=== PATIENT | female | born 1985 | race Caucasian/White ===

== ENCOUNTER 2017-07-10 21:17 | Emergency (ER) | payer MEDICAID ==
[~2017-07-10] VITALS: Ht 170.2 cm; Wt 83.9 kg
[2017-07-10 21:51] VITALS: BP_SYST 141
--- NOTE | 2017-07-10 22:00 | NUR ---
PT IN WAITING ROOM TO [facility] C/O VAGINAL BLEED IUP 5 W[address]KS , DR JIMENEZ AWARE.
--- NOTE | 2017-07-10 22:05 | NUR ---
ER examining patient in triage.
[2017-07-10 22:54] LABS: BILIRUBIN,URINE NEGATIVE (NEGATIVE); BLOOD, URINE NEGATIVE (NEGATIVE); CLARITY/URINE CLEAR (CLEAR); COLOR,URINE YELLOW (YELLOW); GLUCOSE,URINE NEGATIVE (NEGATIVE); KETONES,URINE NEGATIVE (NEGATIVE); LEUKOCYTE ESTERASE ,URINE NEGATIVE (NEGATIVE); NITRITE, URINE NEGATIVE (NEGATIVE); PH,URINE 6.5 (5.0-8.0); PROTEIN URINE NEGATIVE (NEGATIVE)
[2017-07-10 23:22] LABS: BASOPHILS % (AUTO) 0.6 % (0.0-2.0); EOSINOPHILS # (AUTO) 0.2 K/uL (0.0-0.4); EOSINOPHILS % (AUTO) 2.6 % (0.0-4.0); HEMOGLOBIN 14.1 g/dL (12.0-16.0); LYMPHOCYTES # (AUTO) 2.8 K/uL (1.0-5.5); MEAN CORPUSCULAR HEMOGLOBIN 33 pg (27-31); MEAN CORPUSCULAR HGB CONC 34 % (32-36); MEAN CORPUSCULAR VOLUME 94 fL (79.0-98.0); MONOCYTES # (AUTO) 0.7 K/uL (0.0-1.0); MONOCYTES % (AUTO) 9.8 % (1.7-9.3); NEUTROPHILS # (AUTO) 3.6 K/uL (1.8-7.7); PLATELET COUNT (AUTO) 250 K/uL (130-430); RED BLOOD CELL COUNT(AUTO) 4.34 MIL/uL (4.2-6.2); RED CELL DISTRIBUTION WIDTH 11.9 % (9.0-15.0); WHITE BLOOD COUNT (AUTO) 7.3 K/uL (4.8-10.8)
--- NOTE | 2017-07-10 23:30 | NUR ---
pt in hallway stable no complaints.
[2017-07-10 23:46] LABS: CALCIUM 8.6 mg/dL (8.4-11.0); CREATININE 0.77 mg/dL (0.55-1.30); POTASSIUM 3.6 mmol/L (3.5-5.1)
[2017-07-10 23:51] LABS: ALBUMIN 3.7 g/dL (3.4-4.8); TOTAL BILIRUBIN 0.3 mg/dL (0.0-1.0)
[2017-07-11 01:21] VITALS: BP_SYST 132
--- NOTE | 2017-07-11 01:27 | NUR ---
Patient given written and verbal discharge instructions and verbalizes understanding. ER MD discussed with patient the results and treatment provided. Patient in stable condition. ID arm band removed. no RX given. Patient educated on pain management and to follow up with PMD. Pain Scale 0/10. Opportunity for questions provided and answered.
== END 2017-07-11 01:21 | disposition home or self-care (01) ==
LOC: SED 21:17
DX: O20.0 Threatened abortion (principal); Z3A.01 Less than 8 weeks gestation of pregnancy
CPT/HCPCS: 36415; 76801; 76817; 80053; 81003; 81025; 84702-TC; 85025; 86900; 86901; 99285

== ENCOUNTER 2017-07-11 23:56 | Emergency (ER) | payer MEDICAID ==
[~2017-07-11] VITALS: Ht 170.2 cm; Wt 83.9 kg
[2017-07-12 00:11] VITALS: BP_SYST 141
--- NOTE | 2017-07-12 00:42 | NUR ---
Patient to ER bed 8 to gown for evaluation. Side rails up. Report given to DILMA Bob
--- NOTE | 2017-07-12 00:42 | NUR ---
SAVANNAH HERNANDEZ Kwaw at bedside for medical evaluation.
--- NOTE | 2017-07-12 00:45 | NUR ---
Patient AOx4, ambulatory, presents to ER with complaint of vaginal bleeing x3 days and passing large blood clots. Patient states she is 5 weeks . Patient states no pain. No other symptoms or complaints at this time.
[2017-07-12 01:13] LABS: CALCIUM 8.9 mg/dL (8.4-11.0); CREATININE 0.64 mg/dL (0.55-1.30); POTASSIUM 3.5 mmol/L (3.5-5.1)
[2017-07-12 01:19] LABS: BASOPHILS # (AUTO) 0.1 K/uL (0.0-0.2); BASOPHILS % (AUTO) 0.7 % (0.0-2.0); EOSINOPHILS # (AUTO) 0.1 K/uL (0.0-0.4); EOSINOPHILS % (AUTO) 1.6 % (0.0-4.0); LYMPHOCYTES # (AUTO) 2.3 K/uL (1.0-5.5); LYMPHOCYTES % (AUTO) 30.3 % (20.5-51.5); MEAN CORPUSCULAR HEMOGLOBIN 33 pg (27-31); MEAN CORPUSCULAR HGB CONC 34 % (32-36); MEAN CORPUSCULAR VOLUME 95 fL (79.0-98.0); MONOCYTES # (AUTO) 0.7 K/uL (0.0-1.0); MONOCYTES % (AUTO) 8.7 % (1.7-9.3); NEUTROPHILS # (AUTO) 4.5 K/uL (1.8-7.7); NEUTROPHILS % (AUTO) 58.7 % (40.0-70.0); PLATELET COUNT (AUTO) 255 K/uL (130-430); RED BLOOD CELL COUNT(AUTO) 4.61 MIL/uL (4.2-6.2); RED CELL DISTRIBUTION WIDTH 12.2 % (9.0-15.0); TOTAL BILIRUBIN 0.4 mg/dL (0.0-1.0); WHITE BLOOD COUNT (AUTO) 7.7 K/uL (4.8-10.8)
--- NOTE | 2017-07-12 01:40 | NUR ---
Patient resting, states no pain at this time.
[2017-07-12 02:23] VITALS: BP_SYST 135
--- NOTE | 2017-07-12 02:23 | NUR ---
Patient given written and verbal discharge instructions and verbalizes understanding. ER MD discussed with patient the results and treatment provided. Patient in stable condition. ID arm band removed. Patient educated on pain management and to follow up with PMD. Pain Scale 0/10. Opportunity for questions provided and answered.
== END 2017-07-12 02:23 | disposition home or self-care (01) ==
LOC: SED 23:56
DX: O20.0 Threatened abortion (principal); Z3A.01 Less than 8 weeks gestation of pregnancy
CPT/HCPCS: 36415; 76801; 76817; 80053; 84702-TC; 85025; 99285

== ENCOUNTER 2018-01-31 20:50 | Emergency (ER) | payer MEDICAID ==
[~2018-01-31] VITALS: Ht 170.2 cm; Wt 78.0 kg
[2018-01-31 21:00] VITALS: BP_SYST 164
[2018-01-31] MEDS ORDERED: NACL 0.9% 1,000 ML IV ONE (21:24)
[2018-01-31] MEDS ORDERED: ACETAMINOPHEN 325 MG TABLET PO ONE (21:30)
[2018-01-31 21:45] LABS: HEMATOCRIT 38.7 % (36-48); HEMOGLOBIN 13.1 g/dL (12.0-16.0); MEAN CORPUSCULAR HEMOGLOBIN 32 pg (27-31); MEAN CORPUSCULAR HGB CONC 34 % (32-36); MEAN CORPUSCULAR VOLUME 96 fL (79.0-98.0); PLATELET COUNT (AUTO) 202 K/uL (130-430); RED BLOOD CELL COUNT(AUTO) 4.04 MIL/uL (4.2-6.2); RED CELL DISTRIBUTION WIDTH 11.7 % (9.0-15.0); WHITE BLOOD COUNT (AUTO) 4.5 K/uL (4.8-10.8)
[2018-01-31 22:20] LABS: ATYPICAL LYMPHOCYTES % 0 % (0-0); BAND % (MANUAL) 2 % (0-6); LYMPHOCYTES % (MANUAL) 55 % (20-46); MONOCYTES % (MANUAL) 6 % (0-11)
[2018-01-31 22:21] LABS: BASOPHILS % (MANUAL) 0 % (0-2); EOSINOPHILS % (MANUAL) 2 % (0-7)
[2018-01-31 22:26] LABS: CALCIUM 8.7 mg/dL (8.4-11.0); CREATININE 0.72 mg/dL (0.55-1.30); POTASSIUM 3.7 mmol/L (3.5-5.1)
[2018-01-31 22:32] LABS: ALBUMIN 3.7 g/dL (3.4-4.8); TOTAL BILIRUBIN 0.5 mg/dL (0.0-1.0)
[2018-01-31] MEDS ORDERED: LISINOPRIL 10 MG TABLET (PRINIVIL) PO ONE (23:45)
[2018-02-01 00:58] VITALS: BP_SYST 144
== END 2018-02-01 00:58 | disposition home or self-care (01) ==
LOC: SED 20:50
DX: I10 Essential (primary) hypertension (principal)
CPT/HCPCS: 36415; 70450; 71045; 80053; 84484; 85007; 85027; 93005; 99285; J7030

== ENCOUNTER 2021-10-01 18:44 | Emergency (ER) | payer MEDICAID ==
[~2021-10-01] VITALS: Ht 170.2 cm; Wt 82.6 kg
[2021-10-01 18:45] VITALS: BP_SYST 153
[2021-10-01] MEDS ORDERED: LABETALOL 100 MG/ 20ML VIAL IVP ONE ×2 (19:45→22:45)
[2021-10-01 20:04] LABS: BASOPHILS # (AUTO) 0.1 K/uL (0.0-0.2); EOSINOPHILS # (AUTO) 0.2 K/uL (0.0-0.4); EOSINOPHILS % (AUTO) 2.8 % (0.0-4.0); HEMATOCRIT 37.1 % (36-48); LYMPHOCYTES # (AUTO) 2.1 K/uL (1.0-5.5); LYMPHOCYTES % (AUTO) 32.9 % (20.5-51.5); MEAN CORPUSCULAR HEMOGLOBIN 33 pg (27-31); MEAN CORPUSCULAR HGB CONC 35 % (32-36); MEAN CORPUSCULAR VOLUME 93 fL (79.0-98.0); MONOCYTES # (AUTO) 0.6 K/uL (0.0-1.0); MONOCYTES % (AUTO) 8.7 % (1.7-9.3); NEUTROPHILS # (AUTO) 3.6 K/uL (1.8-7.7); NEUTROPHILS % (AUTO) 54.6 % (40.0-70.0); PLATELET COUNT (AUTO) 209 K/uL (130-430); RED BLOOD CELL COUNT(AUTO) 3.98 MIL/uL (4.2-6.2); RED CELL DISTRIBUTION WIDTH 13.1 % (9.0-15.0); WHITE BLOOD COUNT (AUTO) 6.5 K/uL (4.8-10.8)
[2021-10-01 20:20] LABS: ALBUMIN 3.3 g/dL (3.4-4.8); CALCIUM 8.8 mg/dL (8.4-11.0); CREATININE 0.43 mg/dL (0.55-1.30); TOTAL BILIRUBIN 0.4 mg/dL (0.0-1.0)
[2021-10-01] MEDS ORDERED: NIFEdipine 30 MG TAB.ER.24 PO ONE (20:45)
[2021-10-01 23:51] VITALS: BP_SYST 120
== END 2021-10-01 23:53 | disposition home or self-care (01) ==
LOC: SED 18:44
DX: O16.1 Unspecified maternal hypertension, first trimester (principal); Z3A.10 10 weeks gestation of pregnancy
CPT/HCPCS: 36415; 76805; 80053; 85025; 96374; 96376; 99284; J3490

== ENCOUNTER 2023-10-22 20:49 | Emergency (ER) | payer MEDICAID ==
[~2023-10-22] VITALS: Ht 170.2 cm; Wt 72.6 kg
[2023-10-22 21:13] VITALS: BP_SYST 195; PULSE 81; RESP 20; TEMP 97.8; O2SAT 99
[2023-10-22] MEDS: HYDROcodone/ACETAMIN 10-325 MG TAB PO ONE (21:38)
[2023-10-22] MEDS: KETOROLAC TROMETHAMINE 60 MG/2 ML VIAL IM ONE (21:41)
[2023-10-22 22:10] LABS: BASOPHILS # (AUTO) 0.1 K/uL (0.0-0.2); BASOPHILS % (AUTO) 0.8 % (0.0-2.0); EOSINOPHILS # (AUTO) 0.2 K/uL (0.0-0.4); EOSINOPHILS % (AUTO) 2.1 % (0.0-4.0); HEMATOCRIT 39.9 % (36-48); HEMOGLOBIN 13.7 g/dL (12.0-16.0); LYMPHOCYTES # (AUTO) 2.5 K/uL (1.0-5.5); LYMPHOCYTES % (AUTO) 30.8 % (20.5-51.5); MEAN CORPUSCULAR HEMOGLOBIN 31 pg (27-31); MEAN CORPUSCULAR HGB CONC 34 % (32-36); MEAN CORPUSCULAR VOLUME 90 fL (79.0-98.0); MONOCYTES # (AUTO) 0.7 K/uL (0.0-1.0); MONOCYTES % (AUTO) 8.5 % (1.7-9.3); NEUTROPHILS # (AUTO) 4.6 K/uL (1.8-7.7); NEUTROPHILS % (AUTO) 57.8 % (40.0-70.0); PLATELET COUNT (AUTO) 248 K/uL (130-430); RED BLOOD CELL COUNT(AUTO) 4.43 MIL/uL (4.2-6.2); RED CELL DISTRIBUTION WIDTH 13.4 % (9.0-15.0)
[2023-10-22 22:15] LABS: ANION GAP 8 (5-15); CALCIUM 8.8 mg/dL (8.4-11.0); CARBON DIOXIDE 28 mmol/L (23-29); CHLORIDE 106 mmol/L (98-107); CREATININE 0.61 mg/dL (0.55-1.30); GFR AFRICAN AMERICAN 143 mL/min (>90); GFR NON AFRICAN-AMERICAN 118 mL/min (>90); GLUCOSE 103 mg/dL (74-106); POTASSIUM 3.4 mmol/L (3.5-5.1); SODIUM SERUM 142 mmol/L (136-145); UREA NITROGEN, BLOOD 13 mg/dL (8-21)
[2023-10-22] MEDS: hydrALAZINE HCL 20 MG/ML VIAL IVP ONE (22:46)
[2023-10-22] MEDS: LORazepam 2 MG/ML VIAL IVP ONE (22:49)
[2023-10-23 00:48] VITALS: BP_SYST 119; PULSE 83; RESP 18; TEMP 97; O2SAT 97
== END 2023-10-23 00:48 | disposition home or self-care (01) ==
LOC: SED 20:49
DX: I16.0 Hypertensive urgency (principal); F14.10 Cocaine abuse, uncomplicated; M25.512 Pain in left shoulder; I10 Essential (primary) hypertension; Z79.899 Other long term (current) drug therapy
CPT/HCPCS: 99285; 96374; 71045; 96375; 80048; 82550; 85025; 85379; 84484; 36415; 93005; 73030; 96372; J0360; J1885; J2060